=== PATIENT | male | born 1965 | race Caucasian/White ===

== ENCOUNTER 2021-05-28 12:39 | Outpatient (CLI) | payer OTHER, SELFPAY ==
--- NOTE | ~2021-05-28 | XR_ITS ---
EXAMINATION: XR shoulder RT min 2V DATE: 05/28/2021 13:18 INDICATION: Right shoulder pain post injury 5 months prior TECHNIQUE: AP internally and externally rotated, AP oblique externally rotated and axillary views of the right shoulder were obtained. COMPARISON: None FINDINGS: Normal alignment. The cephalad aspect of the glenohumeral joint space appears normal. The articular s urface at the anteroinferior glenoid is not well profiled on the Grashey projection with irregular co ntour and increased bone density projecting closer to the inferior neck the glenoid suggests a possib le displaced osseous Bankart fracture fragment. No other lesions suspicious for fracture identified. Moderate acromioclavicular osteoarthritis. Soft tissues are unremarkable. Visualized portions of the lungs are clear. IMPRESSION: 1. Irregular contour to the anteroinferior glenoid suspicious for nondisplaced osseous Bankart fractu re. Consider CT for more definitive determination. 2. Moderate acromioclavicular osteoarthritis. Reviewed, dictated and finalized at location A. IMPRESSION: 1. Irregular contour to the anteroinferior glenoid suspicious for nondisplaced osseous Bankart fracture. Consider CT for more definitive determination. 2. Moderate acromioclavicular osteoarthritis.
== END 2021-05-28 12:40 | disposition home or self-care (01) ==
LOC: ANHIMG 12:46
PROVIDERS: PCP Internal Medicine; Visit Provider Internal Medicine
DX: M19.011 Primary osteoarthritis, right shoulder (principal)
CPT/HCPCS: 73030

== ENCOUNTER 2021-11-12 01:32 | Day surgery (SDC) | payer OTHER, SELFPAY ==
[2021-11-02 15:49] VITALS: BMI 31.6
--- NOTE | 2021-11-12 08:29 | WPDANESEPPF ---
Anes - Initial Pre Proc Eval Procedure: Operation Date: 11/12/21 09:45 Proposed Procedures p Screening Colonoscopy - Jann Dupont MD Date/Time: 11/12/21 08:29 Surgeon: Jann Dupont MD Pre Op Diagnosis: neoplasm screening Patient Data Age: 56 Gender: M Height: 1.78 m Weight: 100 kg Allergies Allergy/AdvReac Type Severity Reaction Status Date / Time No Known Allergies Verified 11/12/21 08:39 Home Medications Medication Instructions Recorded Confirmed Type hydrochlorothiazide 25 mg PO DAILY 11/02/21 11/02/21 History lisinopril 40 mg PO DAILY 11/02/21 11/02/21 History Patient hx anesthesia problems: none Family hx anesthesia problems: none Results Review: All pre-operative results and documents have been reviewed as part of the pre-operative evaluation. PENDING SALE TO [facility] Past Medical History Medical History (Updated 11/12/21 @ 08:30 by Kevin Sherman MD) HTN (hypertension) Obesity Social History Social History Smoking status: Never smoker Alcohol intake: never Substance use: never Substance use type: does not use Living arrangements: with family Spiritual care concerns: No Anes - Eval Final PreProcedure Day of Procedure 11/12/21 08:29 Patient weight: overweight Heart: regular rate and rhythm Lungs: clear to auscultation and normal air movement Airway: Mallampati scale class II Neurological: alert and oriented Last oral intake: >/= 8 hours ASA classification: II Emergent: no Anesthetic plan: proceed Anesthesia type and monitoring: general GIVS Results Review: All pre-operative results and documents have been reviewed as part of the pre-operative evaluation. Informed Consent: The patient's anesthetic plan and its attendant risks and benefits were discussed with the patient/family/POA. Questions were solicited and answers provided to the satisfaction of the patient/family/POA.
[2021-11-12 08:40] VITALS: BP 125/83; PULSE 73; RESP 20; TEMP 35.7; O2SAT 100
[2021-11-12] MEDS: LACTATED RINGERS 1,000 ML 150 ML IV CONT (08:53)
--- NOTE | 2021-11-12 09:11 | WPDGICN ---
Assessment and Plan Assessment and plan (1) Encounter for screening colonoscopy: Code(s): Z12.11 - Encounter for screening for malignant neoplasm of colon Status: Acute Assessment and Plan: Patient presents for screening colonoscopy. Appears to be at average risk for colon polyps. Further recommendations will be given after endoscopy. GI Consult Note Consult date/time: 11/12/21 09:11 HPI: Chapito Larose is a 56 year old male Presents for screening colonoscopy. Patient's current weight appetite and bowel movements are normal. He denies abdominal pain. He has had no bleeding. Family history noncontributory. Patient presents today for neoplasia screening. Review of Systems Review of Systems: All systems reviewed & are unremarkable except as noted in HPI and below PMFSH Past Medical History Medical History (Updated 11/12/21 @ 09:12 by Jann Dupont MD) HTN (hypertension) Obesity Social History Social History Smoking status: Never smoker Alcohol intake: never Substance use: never Substance use type: does not use Living arrangements: with family Spiritual care concerns: No Meds Home Medications and Allergies Home Medications Medication Instructions Recorded Confirmed Type hydrochlorothiazide 25 mg PO DAILY 11/02/21 11/02/21 History lisinopril 40 mg PO DAILY 11/02/21 11/02/21 History Allergies Allergy/AdvReac Type Severity Reaction Status Date / Time No Known Allergies Verified 11/12/21 08:39 Vital Signs Vital Signs - 24 hr 11/12/21 08:40 Temperature 96.3 F L Pulse Rate 73 Respiratory Rate 20 Blood Pressure 125/83 Pulse Oximetry 100 Exam Narrative: Physical exam reveals patient to be alert. Vital signs stable. HEENT exam is unremarkable. Patient is anicteric. Lungs are clear to auscultation and percussion. Heart is without murmur or extra sounds. Abdominal exam bowel sounds present soft nontender with no organomegaly. Digital external rectal exam is normal.
[2021-11-12 09:38] VITALS: BP 106/64; PULSE 74; RESP 18; O2SAT 98
[2021-11-12 09:48] VITALS: BP 107/82; PULSE 64; RESP 20; O2SAT 98
[2021-11-12 09:58] VITALS: BP 128/91; PULSE 60; RESP 18; O2SAT 98
== END 2021-11-12 10:09 | disposition home or self-care (01) ==
PROVIDERS: PCP Internal Medicine; Visit Provider Internal Medicine Gastroenterology
PROC: 0DJD8ZZ Inspection of Lower Intestinal Tract, Via Natural or Artificial Opening Endoscopic (ICD-10-PCS; CPT 45378; principal; 2021-11-12 09:45)
DX: Z12.11 Encounter for screening for malignant neoplasm of colon (principal); K64.8 Other hemorrhoids; K57.30 Diverticulosis of large intestine without perforation or abscess without bleeding; I10 Essential (primary) hypertension; E66.9 Obesity, unspecified; Z68.30 Body mass index [BMI] 30.0-30.9, adult
CPT/HCPCS: 45378; J2001; J2704; J7120

== ENCOUNTER 2023-01-04 09:24 | Emergency (ER) | payer OTHER, SELFPAY ==
--- NOTE | ~2023-01-04 | XR_ITS ---
EXAMINATION: XR hip RT 2V w AP pelvis DATE: 01/04/2023 09:56 INDICATION: Right posterior hip pain TECHNIQUE: Anteroposterior view of the pelvis and anteroposterior and frog-leg lateral views of the r ight hip were obtained. COMPARISON: None. FINDINGS: Malleable plate and screw fixation extending from the medial side of the right iliac crest to along t he right superior pubic ramus with 3 additional screws along the more lateral iliac crest and anterio r iliac spine. Moderate right and mild to moderate left hip osteoarthritis. No fracture or suspected avascular necrosis. Moderate lower lumbar spondylosis. Soft tissues are unremarkable. IMPRESSION: 1. Prior internal fixation involving the right innominate bone. No acute osseous abnormality. 2. Mild right and mild to moderate left hip osteoarthritis. 3. Moderate lower lumbar spondylosis. Reviewed, dictated and finalized at location A. IMPRESSION: 1. Prior internal fixation involving the right innominate bone. No acute osseou s abnormality. 2. Mild right and mild to moderate left hip osteoarthritis. 3. Moderate lower lumbar spondylosis.
[2023-01-04 09:44] VITALS: BP 124/74; PULSE 61; RESP 16; TEMP 36.5; O2SAT 99
--- NOTE | 2023-01-04 09:55 | ED.EXTPRO ---
HPI - Extremity Problem General Chief complaint: Extremity Problem,Nontraumatic Stated complaint: R HIP PAIN Time Seen by Provider: 01/04/23 09:55 Source: patient Mode of arrival: ambulatory Limitations: no limitations History of Present Illness HPI Narrative: 57-year-old male presents with complaint of right lower back pain radiating to right hip and buttock starting this morning. 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 Also states that he was moving around the generator site and changing oil on them. 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 He thinks that the combination of these things is causing his pain. He also reports a history of a right hip and femur fracture. States he has pins and screws to right hip. He took ibuprofen prior to arrival with no relief of pain. He does not want any prescription or context today. He is ambulatory with a steady gait. Obvious pain when moving from sitting to standing position. No loss of bowel or bladder, no weakness to lower extremities. All systems reviewed and negative except as noted above. Related Data Home Medications Medication Instructions Recorded Confirmed hydrochlorothiazide 25 mg tablet 25 mg PO DAILY 11/02/21 11/02/21 lisinopril 40 mg tablet 40 mg PO DAILY 11/02/21 11/02/21 Allergies Allergy/AdvReac Type Severity Reaction Status Date / Time No Known Allergies Verified 11/12/21 08:39 Review of Systems Review of Systems: CONSTITUTIONAL: Denies fever, chills, or sweats. EYES: Denies visual changes, redness, or discharge. ENT: Denies rhinorrhea, congestion, sore throat, or otalgia. CARDIOVASCULAR: Denies chest pain, palpitations, or edema. RESPIRATORY: Denies cough or dyspnea. GASTROINTESTINAL: Denies abdominal pain, nausea, vomiting, or diarrhea. GENITOURINARY: Denies dysuria or hematuria. SKIN: Denies rash or itching. MUSCULOSKELETAL: Reports right lower back pain radiating to right hip and right buttock. NEUROLOGIC: Denies headache, numbness, or weakness. PSYCHIATRIC: Denies anxiety or depression. All other systems reviewed are negative, except as documented in HPI. [facility] Past Medical History Medical History (Updated 01/04/23 @ 10:15 by Sharmaine Guaman NP) HTN (hypertension) Obesity Social History Social History Smoking status: Never smoker Alcohol intake: never Substance use: never Substance use type: does not use Living arrangements: with family Spiritual care concerns: No Comments At time of signature, agree with nursing past medical, surgical, social and family history. There is no relevant family history pertinent to the presenting complaint. Exam Narrative: GENERAL: This is a well-nourished, well-developed patient, in no apparent distress. HEAD: normocephalic, atraumatic. EYES: PERRL. Sclera clear/white. Vision is grossly intact. EARS: External ears normal NOSE: External nose normal NECK: Neck supple, non-tender without lymphadenopathy, masses or thyromegaly. CARDIOVASCULAR: Regular rate and rhythm without murmurs, gallops, or rubs. RESPIRATORY: Clear to auscultation. Breath sounds equal bilaterally. No wheezes, rales, or rhonchi. SKIN: warm, Dry, intact with no suspicious lesions or rash, good texture and turgor. NEURO: awake, alert, and oriented to person, place and time. There were no obvious focal neurologic abnormalities. EXTREMITIES: No joint tenderness, effusion, or edema noted. BACK: Tenderness on palpation to right SI, right buttock, right lateral hip. No obvious swelling or deformity. Ambulatory with steady gait. Positive right straight leg raise. Lower extremity strength 5/5. Course Course Level of Care: Express Care Visit Vital Signs Vital signs: Vital Signs Temperature 36.5 C 01/04/23 09:44 Pulse Rate 61 01/04/23 09:44 Respiratory Rate 16 01/04/23 09:44 Blood Pressure 124/74
== END 2023-01-04 10:22 | disposition home or self-care (01) ==
PROVIDERS: Emergency Provider Nurse Practitioner Family; PCP Internal Medicine
DX: M54.41 Lumbago with sciatica, right side (principal); M16.0 Bilateral primary osteoarthritis of hip; I10 Essential (primary) hypertension; E66.9 Obesity, unspecified; Z68.30 Body mass index [BMI] 30.0-30.9, adult
CPT/HCPCS: 73502; 99213; G0463

== ENCOUNTER 2025-01-24 10:59 | Emergency (ER) | payer OTHER, SELFPAY ==
--- NOTE | ~2025-01-24 | XR_ITS ---
EXAMINATION: XR ankle RT min 3V DATE: 01/24/2025 12:13 INDICATION: Right ankle pain and swelling TECHNIQUE: Anteroposterior, oblique, mortise, and lateral views of the right ankle were obtained. COMPARISON: None. FINDINGS: Bone alignment is normal. No fracture. Mild osteoarthritis at the right ankle. Moderate-sized Valentina s and plantar calcaneal spurs. Additional enthesophytes along the distal tibiofibular syndesmosis. Th ere is prominent fusiform thickening of the Achilles tendon consistent with tendinosis extending for approximately 7 cm AP and centered 7 cm proximal to the calcaneal insertion. There are multiple heter otopic ossicles within this region of fusiform thickening likely related to reported chronic surgery in the Achilles tendon 30 years prior. There is mild soft tissue swelling about both the medial and l ateral aspects of the ankle. IMPRESSION: 1. No acute osseous abnormality. 2. Mild degenerative skeletal changes including mild osteoarthritis at the ankle and enthesophytes at the calcaneus and distal tibiofibular syndesmosis. 3. Prominent Achilles tendinosis with heterotopic ossicles likely sequela of reported chronic surgery to the tendon. Reviewed, dictated and finalized at location A. IMPRESSION: 1. No acute osseous abnormality. 2. Mild degenerative skeletal changes including mild osteoarthritis at the ankl e and enthesophytes at the calcaneus and distal tibiofibular syndesmosis. 3. Prominent Achilles tendinosis with heterotopic ossicles likely sequela of re ported chronic surgery to the tendon.
--- NOTE | 2025-01-24 11:01 | ED_ITS ---
HPI - Extremity Injury (Lower) General Chief Complaint: Extremity Problem,Nontraumatic Stated Complaint: Right Leg/Foot Pain Time Seen by Provider: 01/24/25 11:01 Source: patient Mode of arrival: ambulatory Limitations: no limitations History of Present Illness HPI Narrative: Patient is a 59-year-old male who presents with right ankle pain for 6 days. 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 Denies any significant pain, popping, swelling, or trauma at that time. In the s he was pushed she something heavy Yosvany heard a loud pop sound in was unable to walk at that time. Reported he had surgical repair at that time. Unsure of specific repair part involved. Reports increase pain with palpation bilaterally around the Achilles region. Reports increased pain with ambulation and dorsiflexion. Denies any numbness tingling. Related Data Home Medications ?Medication ?Instructions ?Recorded ?Confirmed ?Last Taken ?Type hydrochlorothiazide 25 mg tablet 25 mg PO DAILY 11/02/21 11/02/21 Unknown History lisinopril 40 mg tablet 40 mg PO DAILY 11/02/21 01/24/25 Unknown History atorvastatin 20 mg tablet mg 01/24/25 Unknown History Allergies Allergy/AdvReac Type Severity Reaction Status Date / Time No Known Allergies Allergy Verified 01/24/25 11:14 Review of Systems Review of Systems: All systems reviewed & are unremarkable except as noted in HPI and below Constitutional: Constitutional: Denies body ache(s), Denies chills, Denies fatigue, Denies fever(s), Denies headache(s), Denies malaise and Denies weakness Eyes: Eyes: Denies blurry vision, Denies irritation and Denies loss of vision ENT: Denies otalgia, Denies headache(s), Denies nasal discharge, Denies sinus pain and Denies sore throat Cardiovascular: Cardiovascular: Denies chest pain, Denies irregular heart rhythm and Denies dyspnea Respiratory: Respiratory: Denies dyspnea Gastrointestinal: Gastrointestinal: Denies abdominal pain, Denies melena, Denies hematochezia, Denies diarrhea, Denies nausea and Denies vomiting Musculoskeletal: Musculoskeletal: Denies back pain, Denies myalgias, Reports arthralgias and Reports joint swelling Integumentary/Breasts: Skin/Breast: Denies pruritus and Denies rash Neurologic: Denies headache(s), Denies loss of vision and Denies weakness Psychiatric: Psychiatric: Reports no additional psychiatric complaints Endocrine: Endocrine: Denies fatigue PMFSH Past Medical History Medical History Obesity HTN (hypertension) Social History Social History Smoking status: Never smoker Alcohol intake: never Substance use: never Substance use type: does not use Living arrangements: with family Spiritual care concerns: No Comments At time of signature, agree with nursing past medical, surgical, social and family history. There is no relevant family history pertinent to the presenting complaint. Exam Const: General: cooperative, healthy appearing, comfortable, no acute distress and well nourished Nutritional Appearance: well nourished Orientation/consciousness: patient oriented x3 Limitations: no limitations HENMT: Head: normal to inspection, normocephalic and atraumatic Ears: hearing grossly normal bilaterally and external ears normal Face/Nose/Sinus: Normal external nose present, normal facial exam and face symmetric Face and sinus: normal facial exam and face symmetric Mouth: Yes lip normal Eyes: General: appearance normal, both eyes and all related structures Alignment and Position: alignment normal and position normal Periorbital: periorbital findings normal Eyelids: eyelids normal Pupils: Equal, round and reactive pupils present EOM: EOMs intact bilaterally Neck: Neck: normal visual inspection, full ROM and supple Chest: Chest palpation & inspection: normal inspection of the chest Resp: Effort & Inspection: normal respiratory effort and able to speak in complete sentences Auscultation: clear to auscultation bilaterally Cardio: Rate: regular rate Rhythm: regular rhythm Heart sounds: S1 normal heart sound present and S2 normal heart sound present GI: Inspection: normal to inspection Skin: General skin exam: normal color and no rashes or lesions noted Neuro: General: patient oriented x3 and moves all extremities Cranial nerves: Yes Equal, round and reactive pupils present Speech: normal speech Gait exam (Neuro): Normal gait present Extrem: General: normal to inspection, full ROM (limited ROM in ankle) and no edema Right lower extremity: lower leg Details: normal to inspection and palpable cord (scarring from previous surgery); no ecchymosis, no deformity and no unusual warmth, ankle Details: tenderness Location: of the achilles tendon, swelling Details: diffusely, abnormal ROM Details: pain with active ROM Details: with plantar flexion, with dorsiflexion, with inversion and with eversion and achilles tendon exam abnormal Details: tenderness to palpation of achilles tendon; no unusual warmth and no ecchymosis and foot Details: normal capillary refill, toes with normal ROM, vascular exam Details: dorsalis pedis pulse presen t and normal capillary refill and tendon exam Details: active flexion normal Location: of all toes and active extension normal Location: of all toes; no tenderness, no unusual warmth and no ecchymosis Psych: Appearance: grossly normal and well kempt Mental Status: mental status grossly normal Speech and movement: Normal speech and movement present Affect: normal affect Attitude: cooperative Thought process: Normal thought process present Course Course Emergency Course: Patient is aware of diagnosis, understands and agrees to treatment plan. Anticipatory guidance given. Patient agrees to follow-up as directed and is aware of reasons to seek care at the emergency department. Portions of this record may have been created with voice recognition software Level of Care: Express Care Visit Vital Signs Vital signs: Vital Signs Temperature 36.7 C 01/24/25 11:15 Pulse Rate 69 01/24/25 11:15 Respiratory Rate 16 01/24/25 11:15 Blood Pressure 151/88 H 01/24/25 11:15 Pulse Oximetry 100 01/24/25 11:15 Oxygen Delivery Room Air 01/24/25 11:15 Temperature 36.7 C 01/24/25 11:15 Pulse Rate 69 01/24/25 11:15 Respiratory Rate 16 01/24/25 11:15 Blood Pressure 151/88 H 01/24/25 11:15 Pulse Oximetry 100 01/24/25 11:15 Oxygen Delivery Room Air 01/24/25 11:15 Reviewed MDM - Extremity Injury (Lower) MDM Narrative Medical decision making narrative: John wrap applied. Patient to follow up with ortho to assess chronic issues. Suggested rest and elevation and taking a few days off work. Patient states he is unable to take off of work due to money issues. Pt well hydrated appearing, in no respiratory distress, hemodynamically stable. Recommend supportive care. The patient is stable at time of discharge the clinical impression was discussed and the patient was given the opportunity to ask questions, which were addressed as completely as possible given the information available at present. Anticipatory guidance and return to care precautions were discussed and the importance of primary care follow-up was stressed and encouraged. The patient voiced understanding of the plan, indications to return, and the need for follow-up. Exam findings show no acute concerns or changes Patient is appropriate for outpatient treatment and follow-up. Differential Diagnosis Differential diagnosis: Likely ankle sprain and strain, ankle fracture and other (Chronic Achilles tendinosis, less likely DVT, cellulitis) Medical Records Attestation: I reviewed the patient's medical records. Imaging Data Radiologist's impression: EXAMINATION: XR ankle RT min 3V DATE: 01/24/2025 12:13 INDICATION: Right ankle pain and swelling TECHNIQUE: Anteroposterior, oblique, mortise, and lateral views of the right ankle were obtained. COMPARISON: None. FINDINGS: Bone alignment is normal. No fracture. Mild osteoarthritis at the right ankle. Moderate-sized Achilles and plantar calcaneal spurs. Additional enthesophytes along the distal tibiofibular syndesmosis. There is prominent fusiform thickening of the Achilles tendon consistent with tendinosis extending for approximately 7 cm AP and centered 7 cm proximal to the calcaneal insertion. There are multiple heterotopic ossicles within this region of fusiform thickening likely related to reported chronic surgery in the Achilles tendon 30 years prior. There is mild soft tissue swelling about both the medial and lateral aspects of the ankle. IMPRESSION: 1. No acute osseous abnormality. 2. Mild degenerative skeletal changes including mild osteoarthritis at the ankle and enthesophytes at the calcaneus and distal tibiofibular syndesmosis. 3. Prominent Achilles tendinosis with heterotopic ossicles likely sequela of reported chronic surgery to the tendon. Discharge Plan Discharge Clinical Impression: Ankle sprain Qualifiers: Encounter type: initial encounter Involved ligament of ankle: unspecified ligament Laterality: right Qualified Code(s): S93.401A - Sprain of unspecified ligament of right ankle, initial encounter Patient Disposition: Home Condition: Stable Instructions: Ankle Sprain (ED) Additional Instructions: Xray showed no fracture. Minimize activities that aggravate the condition The RICE protocol. Follow the RICE protocol as soon as possible after your injury: Rest your ankle by not walking on it. Ice should be immediately applied to keep the swelling down. It can be used for 20 to 30 minutes, three or four times daily. Do not apply ice directly to your skin. Compression dressings, bandages or john-wraps will immobilize and support your injured ankle. Elevate your ankle above the level of your heart as often as possible during the first 48 hours. Medication: Nonsteroidal anti-inflammatory drugs (NSAIDs) such as ibuprofen and naproxen can help control pain and swelling. Because they improve function by both reducing swelling and controlling pain, they are a better option for mild sprains than narcotic pain medicines. Please schedule a follow-up visit with your personal physician for further evaluation and treatment within 1week OR If your symptoms persist, change or worsen significantly before you can contact your personal physician then please, without delay, go to the emergency department for further evaluation. Your blood pressure was elevated above 120/80 today at Urgent Care. This puts you above the threshold for follow up visit with a primary care provider. High blood pressure does not usually cause any symptoms, however it may lead to kidney failure, stroke, heart disease just to name a few if untreated . Many people are anxious when seeing a provider or nurse. As a result, you are not diagnosed with hypertension at this time unless your blood pressure is persistently high at two office visits at least one week apart. Some things that can help lower blood pressure are lifestyle modifications, such as light exercise, decreased salt in diet, and weight loss. It is important to follow up with a PCP about this within 1 week. Patient Language: Greenlandic Prescriptions: New prednisone 20 mg tablet 40 mg PO DAILY 5 Days Qty: 10 0RF No Action prednisone 20 mg tablet See Rx Instructions .Route .COMPLEX Qty: 12 0RF Rx Instructions: Take 3 tablets today, then 2 tablets daily for 3 days then 1 tablet daily for 3 days. methocarbamol 750 mg tablet 750 mg PO Q8H PRN (Reason: muscle pain/spasm) Qty: 30 0RF atorvastatin 20 mg tablet hydrochlorothiazide 25 mg tablet 25 mg PO DAILY lisinopril 40 mg tablet 40 mg PO DAILY Follow-up/Referrals: Cody Tripp MD [Physician] - 3 Days (IMPRESSION: 1. No acute osseous abnormality. 2. Mild degenerative skeletal changes including mild osteoarthritis at the ankle and enthesophytes at the calcaneus and distal tibiofibular syndesmosis. 3. Prominent Achilles tendinosis with heterotopic ossicles likely sequela of reported chronic surgery to the tendon.) Trevor Wallace MD [Physician] - 3 Days (Establish care) Stand Alone Forms: Work/School Release IP Time of Disposition: 13:01
[2025-01-24 11:15] VITALS: BP 151/88; PULSE 69; RESP 16; TEMP 36.7; O2SAT 100
== END 2025-01-24 13:16 | disposition home or self-care (01) ==
PROVIDERS: Emergency Provider Nurse Practitioner Family
DX: S93.401A Sprain of unspecified ligament of right ankle, initial encounter (principal); X50.0XXA Overexertion from strenuous movement or load, initial encounter; I10 Essential (primary) hypertension; E66.9 Obesity, unspecified; Z68.32 Body mass index [BMI] 32.0-32.9, adult
CPT/HCPCS: 73610; 99213; G0463